=== PATIENT | male | born 1995 | race Caucasian/White ===

== ENCOUNTER → 2024-08-17 | Outpatient (CLI) | payer OTHER, SELFPAY ==
--- NOTE | 2024-08-17 09:34 | MRI_ITS ---
PROCEDURE: LOWER EXT JOINT ONLY (ROUTINE) 08/17/2024 REASON FOR EXAM: MCL SPRAIN TECHNIQUE: MRI of the right knee extremity. T1, T2, PD multiplanar and multisequence images were obtained without IV contrast administration. COMPARISON: COMPARISON : August 06, 2024 x-ray FINDINGS: Bone Marrow: There is bony contusion throughout the medial tibial plateau. Effusion: There is a moderate joint effusion. There is a 1.3 x 0.9 cm Aleman's cyst. Soft Tissues: There is a edema and attenuation throughout the anterior cruciate ligament with lax components, grade 2-3 sprain. The posterior cruciate appears intact. There is a edema, thickening and attenuation throughout the medial collateral ligament without laxity, grade 2 sprain. The lateral collateral ligament complex appears intact. Menisci: The lateral meniscus appears intact. There is a complex tear of the medial meniscus with a bucket-handle component with a fragment interposed in the intercondylar region, with a horizontal component in the posterior horn extending to the tibial surface and to the root. There is a 1.3 x 0.4 cm complex parameniscal cyst at the posterior horn of the medial meniscus. There is mild chondromalacia in the medial patellar facet. Ligaments and Tendons: The distal quadriceps and patellar tendons appear intact. The medial and lateral patellar retinaculum appear intact. MRI/Lower Ext Joint Only (Routine) IMPRESSION: There is bony contusion throughout the medial tibial plateau. There is a moderate joint effusion. There is a 1.3 x 0.9 cm Aleman's cyst. There is a edema and attenuation throughout the anterior cruciate ligament with lax components, grade 2-3 sprain. There is a edema, thickening and attenuation throughout the medial collateral l igament without laxity, grade 2 sprain. There is a complex tear of the medial meniscus with a bucket-handle component w ith a fragment interposed in the intercondylar region, with a horizontal component in the posterior horn extending to the tibi al surface and to the root. There is a 1.3 x 0.4 cm complex parameniscal cyst at the posterior horn of the medial meniscus. There is mild chondromalacia in the medial patellar facet. Reading Location: [facility]
== END | disposition home or self-care (01) ==
LOC: OPMRI 09:22
PROVIDERS: PCP Family Medicine; Referring Provider Physician Assistant Surgical; Visit Provider Physician Assistant Surgical
DX: S83.411A Sprain of medial collateral ligament of right knee, initial encounter (principal); X58.XXXA Exposure to other specified factors, initial encounter
CPT/HCPCS: 73721

== ENCOUNTER 2024-09-16 10:09 | Day surgery (SDC) | payer OTHER, SELFPAY ==
[2024-09-16] VITALS (13 sets, daily range): BP systolic 116–142; BP diastolic 58–73; PULSE 57–67; RESP 14–20; TEMP 36.2–36.4; O2SAT 94–99; BMI 33.8
[2024-09-16] MEDS: Lactated Ringers 1,000 ML 15 ML IV (11:06)
--- NOTE | 2024-09-16 11:53 | PCM.PRE.AN2 ---
ASA Classification* ASA Classification ASA Classification: 1 Assessment & Plan Anesthesia* Anesthesia Assessment Anesthesia Assessment: Discussed sedation and/or anesthesia options, risks, benefits, and alternatives with patient/parents/legal guardian/POA. Questions invited. The patient/parents/legal guardian/POA seems to understand and agrees to proceed with anesthesia plan. Reviewed the physical assessment, medical history, allergy history and patient home medications list prior to surgery/procedure/anesthetic and documented any changes. Performed airway and anesthesia risk assessments. Anesthesia Type Anesthesia Type: General and Block (Patient is consented for adductor canal block.) History Source History Obtained from:: Patient and Chart Anesthesia Focused Assessment* Temperature: 97.5 F Pulse Rate: 67 Blood Pressure: 136/70 Respiratory Rate: 20 Pulse Ox: 99 Oxygen Delivery Method: Room Air Airway Assessment Mouth opens: >3 cm Mallampati Score: II Teeth Condition: Missing (Patient has 1 missing left upper molar. 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 When Was Last Pacemaker Check QUESTION #4 FULL TEXT: You/Your Family Experience fever (hyperthermia) with Anesthesia Last Oral Intake Last Oral intake: Last Oral Intake NPO since 21:00 09/16/24 10:55 Meds taken in AM with sips of water? Meds patient instructed to take am of surgery PONV PONV - land degradation analyst: PONV - land degradation analyst Female No 09/03/24 15:31 HX of Motion Sickness No 09/03/24 15:31 HX of N/V After Surgery No 09/03/24 15:31 Non-Smoker Yes 09/03/24 15:31 Duration of Surgery greater Yes 09/03/24 15:31 than 60 minutes Number of Risk Factors 2 09/03/24 15:31 PONV Score Moderate Risk 09/03/24 15:31 Height & Weight Height & Weight: Anesthesia: Height & Weight Height 6 ft 2 in 09/16/24 10:55 Weight: 119.5 kg 09/16/24 10:55 Body Mass Index (BMI) 33.8 09/16/24 10:55 Respiratory Assessment Respiratory Assessment - land degradation analyst: Respiratory Tract Infection Hx - land degradation analyst Hx Respiratory Tract Infection No 09/03/24 15:31 STOP Sleep Apnea STOP Sleep Apnea - land degradation analyst: STOP Sleep Apnea - land degradation analyst Hx Hypertension No 09/03/24 15:31 Hx Sleep Apnea No 09/03/24 15:31 CPAP BIPAP Do you snore loudly (louder No 09/03/24 15:31 than talking or can be heard Do you often feel tired/ No 09/03/24 15:31 fatigued/ sleepy during daytime? Has anyone observed you stop No 09/03/24 15:31 breathing during sleep? STOP Results Negative 09/03/24 15:31 QUESTION #5 FULL TEXT : Do you snore loudly (louder than talking or can be heard through closed doors)? 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 Specify any problems Hx of Preganancy in last 3 N/A 09/03/24 15:31 Months Nurse Filling Out Transfusion NBUCHER 09/03/24 15:31 & Questions: Date: 09/03/24 09/03/24 15:31 Time: 15:32 09/03/24 15:31 Patient unable to answer at this time (ie. confused, unrespo /Reproduction History /Reproductive History - land degradation analyst: /Reproductive Hx- land degradation analyst Hx Now No 09/03/24 15:31 Gestational Age (in weeks): EDC: Hx Hx Para Hx Section SAB No 09/03/24 15:31 Active Medications Active Medications: Current Medications Generic Name Dose Route Start Last Admin Trade Name Freq PRN Reason Stop Dose Admin Cefazolin Sodium 3 gm/ Sodium 115 mls @ 150 mls/hr 09/16/24 11:40 Chloride IV 09/16/24 12:25 INTRAOP ONE Lactated Ringer's 1,000 mls @ 15 mls/hr 09/16/24 10:45 09/16/24 11:06 IV 15 mls/hr .Q48H FLACO Administration PFSH Medical History Heartburn Gastric reflux Non-smoker Contusion of bone Synovial cyst of popliteal space [Aleman], right knee Sprain of anterior cruciate ligament of right knee Tear of medial meniscus of right knee Home Medications ?Medication ?Instructions ?Recorded ?Last Taken ?Type NK 08/06/24 Unknown History Allergy/AdvReac Type Severity Reaction Status Date / Time No Known Allergies Allergy Verified 09/16/24 10:55 Surgical History History of myringotomy History of thoracentesis Social History Smoking Status: Never smoker Smokeless tobacco user: chewing tobacco alcohol intake: never Review of Systems (Anesthesia) ROS Narrative System reviewed and no additional complaints, except as documented.
--- NOTE | 2024-09-16 12:25 | PCM.HP.STD ---
HPI - General HPI Narrative NANETTE BUSH, is a 29 M who presents for right knee arthroscopy, medial meniscus repair [possible partial medial meniscectomy]. No changes to history and physical exam. Right knee marked. Risks alternatives benefits discussed as well as postoperative instructions and narcotic counseling. The patient understands wished to proceed plan for preoperative block they understood no further questions or concerns. MR#: [id number] Acct: [id number] Name: NANETTE BUSH Rep #: [id number] : 1995 Provider: Dr. Gurpreet Seaman MD Age/Sex: 29/M Location: [facility] [place] Status: Signed Intake Vital Signs 08/14/2507:00 09/01/2507:16 09/03/2507:02 Height 6 ft 2 in 6 ft 2 in 6 ft 2 in Weight: 272 lb BMI 34.9 BP 118/80 Blood Pressure Location Rt brachial Position Sitting Respiration 16 Pulse 63 Pulse Source Monitor Temp 98.5 F Temp Source Temporal Pulse Oximetry (%) 98 Oxygen Delivery Method room air Intake Visit Reasons: RIGHT KNEE Chief Complaint: BWC Right Knee F/U / Eddie Buckner Accompanied by: Self Is patient in pain?: Yes (intermittent) Allergies No Known Allergies Allergy (Verified 09/02/24 08:02) Medications ?Medication ?Instructions ?Recorded ?Confirmed ?Type NK 08/06/24 09/02/24 History PFSH Medical History Contusion of bone Synovial cyst of popliteal space [Aleman], right knee Sprain of anterior cruciate ligament of right knee Tear of medial meniscus of right knee Social History Smoking Status: Never smoker Smokeless tobacco user: chewing tobacco alcohol intake: never HPI RIGHT KNEE Details: This documentation accurately reflects the service provided and the decisions made by me, Dr. Gurpreet Seaman MD 09/02/24 [id number]. Part of today?s visit was documented by [ ], acting as scribe. NANETTE BUSH is a 29 year old M here today for R knee injury, wcb claim. 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 On the date of the injury he was getting twisting pivoting on the knee there is a pop and immediate pain in the medial aspect of the knee. He is continue to experience medial sided knee pain and mechanical symptoms with no giving way the locking in the knee and catching and intermittent sharp pains along the medial joint line. He has been working full-time with no restrictions so far. No past history of injury to the right knee but on the left side he did have an MCL tear in the past. per urgent care 29 M who presents to the office today for complaint of right knee pain. Patient states he was working yesterday on a part kneeling on his right knee and when he went to get up he felt a pop in the right knee. Patient states that since then he has had pain to the inside of the right knee area. He denies any previous injuries to same. No numbness, tingling or loss of range of motion. No other associated symptoms or alleviating/aggravating factors. Supplemental Info [facility] Imaging Services [address] [place], [place] [id number] Knee 3 Views MR#: [id number] Acct: [id number] Name: NANETTE BUSH Rep #: [id number] : 1995 M 29 From: Brayden Galindo MD PCP: Dr. Alok Andino MD Status: DEP AMB Study: Knee 3 Views Date of Exam: 08/06/24 Exam# [id number] Ordering Dr: Malachi Petersen PROCEDURE: KNEE 3 VIEWS 08/06/2024 REASON FOR EXAM: KNEE INJURY TECHNIQUE: 3 view(s) of the right knee COMPARISON: None. RAD/Knee 3 Views IMPRESSION: No significant right knee joint effusion is seen. No significant arthritic process or joint narrowing is noted. Satisfactory osseous alignment is noted. No fracture site is seen. If clinical concern persists, short-term follow-up imaging may be obtained to rule out a currently occult fracture. Reading Location: [address] Imaging Services [address] [place], [place] [id number] Lower Ext Joint Only (Routine) MR#: [id number] Acct: [id number] Name: NANETTE BUSH Rep #: [id number] : 1995 M 29 From: Abdirahman Jain MD PCP: Dr. Alok Andino MD Status: REG CLI Study: Lower Ext Joint Only (Routine) Date of Exam: 08/17/24 Exam# [id number] Ordering Dr: Malachi Petersen PROCEDURE: LOWER EXT JOINT ONLY (ROUTINE) 08/17/2024 REASON FOR EXAM: MCL SPRAIN TECHNIQUE: MRI of the right knee extremity. T1, T2, PD multiplanar and multisequence images were obtained without IV contrast administration. COMPARISON: COMPARISON : August 06, 2024 x-ray FINDINGS: Bone Marrow: There is bony contusion throughout the medial tibial plateau. Effusion: There is a moderate joint effusion. There is a 1.3 x 0.9 cm Aleman's cyst. Soft Tissues: There is a edema and attenuation throughout the anterior cruciate ligament with lax components, grade 2-3 sprain. The posterior cruciate appears intact. There is a edema, thickening and attenuation throughout the medial collateral ligament without laxity, grade 2 sprain. The lateral collateral ligament complex appears intact. Menisci: The lateral meniscus appears intact. There is a complex tear of the medial meniscus with a bucket-handle component with a fragment interposed in the intercondylar region, with a horizontal component in the posterior horn extending to the tibial surface and to the root. There is a 1.3 x 0.4 cm complex parameniscal cyst at the posterior horn of the medial meniscus. There is mild chondromalacia in the medial patellar facet. Ligaments and Tendons: The distal quadriceps and patellar tendons appear intact. The medial and lateral patellar retinaculum appear intact. MRI/Lower Ext Joint Only (Routine) IMPRESSION: There is bony contusion throughout the medial tibial plateau. There is a moderate joint effusion. There is a 1.3 x 0.9 cm Aleman's cyst. There is a edema and attenuation throughout the anterior cruciate ligament with lax components, grade 2-3 sprain. There is a edema, thickening and attenuation throughout the medial collateral ligament without laxity, grade 2 sprain. There is a complex tear of the medial meniscus with a bucket-handle component with a fragment interposed in the intercondylar region, with a horizontal component in the posterior horn extending to the tibial surface and to the root. There is a 1.3 x 0.4 cm complex parameniscal cyst at the posterior horn of the medial meniscus. There is mild chondromalacia in the medial patellar facet. Reading [facility] I independently reviewed the imaging. Concur with radiologist report. 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 The meniscus tear is likely acute from this kneeling injury. May have left alone that would likely contribute to further degeneration problems damage of the cartilage and further tearing of the meniscus. I suggest surgery in the form of right knee arthroscopy, medial meniscus repair [possible partial medial meniscectomy]. Patient understands wished to go ahead with surgery. He does use chewing tobacco that can increase the risks of surgery. Otherwise he is healthy individual. He understands we will submit the approval and in the meantime [employer] 14 for no pivoting twisting and mostly sedentary activities only for now. I did let her know that we will try to get this done as soon as possible as he does have a bucket-handle tear in the longer he uses as needed worse the potential damage could be to the meniscus. Pros and cons risks and benefits were discussed with the patient including but not limited to infection, pain, stiffness, bleeding, damage to surrounding structures, neurovascular injury, recurrence or retear, failure or wear of hardware or fixation, instability, fracture, deep vein thrombosis and pulmonary embolism, anesthetic risks, , patient dissatisfaction, need for further surgery and other risks. Patient understood and wished to proceed with surgery, and signed the informed consent documentation. (2) Tear of medial meniscus of right knee: Status: Acute (3) Sprain of anterior cruciate ligament of right knee: Status: Acute (4) Synovial cyst of popliteal space [Aleman], right knee: Status: Acute (5) Contusion of bone: Status: Acute Ortho Exam General General: Yes no acute distress Neurologic: Yes alert and Yes oriented x3 Psychologic: Yes reasonable and appropriate Right Knee Skin/Wound: Yes CDI, No erythema, No ecchymosis and Yes swelling Knee ROM: Yes ROM-Flexion 0-140 Examination: Yes Med jt line tenderness, No Lat jt line tenderness, No TTP inf pole patella, No Crepitus, No Pain with flexion, Yes Lauren's Test, No TTP Patellar tendon, No TTP Tibial tubercle, No TTP Pes Anserine and No Illiotibial band tenderness Quad Atrophy: No Stability: NML: Anterior Drawer, NML: Sheila, NML: Posterior Drawer, NML: Valgus 0, NML: Valgus 30, NML: Varus 0 and NML: Varus 30 Patella Translation: 2 Apprehension with Lateral Translation: No Patellar Tilt Normal: Yes Patella Grind: No KNEE: NVI, normal gait, normal alignment, trace effusion, full ROM. Left Knee Patella Translation: 2 PFSH Medical History Heartburn Gastric reflux Non-smoker Contusion of bone Synovial cyst of popliteal space [Aleman], right knee Sprain of anterior cruciate ligament of right knee Tear of medial meniscus of right knee Home Medications ?Medication ?Instructions ?Recorded ?Last Taken ?Type NK 08/06/24 Unknown History Allergy/AdvReac Type Severity Reaction Status Date / Time No Known Allergies Allergy Verified 09/16/24 10:55 Surgical History History of myringotomy History of thoracentesis Social History Smoking Status: Never smoker Smokeless tobacco user: chewing tobacco alcohol intake: never Vital Signs Vital Signs Vital Signs: 09/16/24 10:55 09/16/24 10:55 09/16/24 12:00 Temperature 97.5 F L 97.5 F L Temperature Source Temporal Pulse Rate 67 67 Respiratory Rate 20 H 20 H Respiratory Pattern Normal Blood Pressure 136/70 H 136/70 H Blood Pressure Mean 92 Blood Pressure Source Monitor Blood Pressure Position Semi-Fowlers Blood Pressure Location Left Arm Pulse Ox 99 99 Oxygen Delivery Method Room Air Room Air Weight Weight: 263 lb 7.238 oz Body Mass Index (BMI) 33.8
[2024-09-16] MEDS: Cefazolin 3 GM in 0.9% Normal Saline (100mL Bag) 100 ML IV (12:39)
[2024-09-16] MEDS: Epinephrine (1 mg/ml) 1 MG/ML VIAL (13:20)
--- NOTE | 2024-09-16 13:32 | PCM.OPRPT ---
Problems Associated Problem List Diagnoses (1) Tear of medial meniscus of right knee: (2) Sprain of anterior cruciate ligament of right knee: (3) MCL sprain of right knee: Procedures Musculoskeletal [id number]-29xxx: Other Procedure See Report Operative Report (Standard) Operative Information Date of Procedure: 09/16/24 Pre-Operative Diagnosis: Right knee medial meniscus tear, ACL and MCL sprain Post-Operative Diagnosis: same Surgery/Procedure Performed: Right knee arthroscopy, medial meniscus repair and small partial meniscectomy, marrow stimulation sequins stringer: Yes Guideman: alyssa Tasks completed by certified surgical first assistant: Retracting Additional blacksmith assistant?: No Type of Anesthesia: Block,Regional and General RN Documented Start/Stop Times: Operation Date: 09/16/24 11:40 Case Time Into Pre-Op 09/16/24 10:37 Anesthesia Start 09/16/24 12:39 Into Room 09/16/24 12:39 Procedure Start 09/16/24 13:03 Procedure End 09/16/24 13:29 Procedure Start Time: 13:03 Procedure Stop Time: 13:29 Select all DRAINS/GRAFTS/IMPLANTS that apply: Implanted device Implanted device details: arthrex fiberstitch meniscus repair device x4 Estimated Blood Loss: 10 Specimen collected: No Description of surgery: Patient brought to the operating room theater. Placed supine on the table. 3 g of IV Ancef administered prior to this procedure. General anesthesia induced. SCD on the nonoperative leg. All bony prominences padded. Right lower extremity tourniquet applied to the right thigh appropriately padded. Stress positioner to the patient's right side. Lower extremity prepped and draped in the usual sterile fashion with chlorhexidine-based prep solution allowing over 3 minutes drying time prior to draping. Began by elevating the limb inflating the tourniquet to 250 mmHg. Use standard anterolateral and anteromedial arthroscopy portals as well as an accessory anteromedial portal. Began by doing a full diagnostic arthroscopy. Cartilage in all 3 compartments was normal. Lateral meniscus was normal stable and solid to probing. Remove the ligamentum mucosum. ACL was stable to probing as well as the PCL. Medial lateral gutters entered no loose bodies. I identified the medial sided tear near the posterior horn. I used piecrust technique at the proximal MCL using a spinal needle to trephinate the MCL and open up the medial compartment. I used a rasp at the tear. There is a horizontal tear. There is also 2 flaps at the anterior and posterior aspect of the tear that had to be removed trim down and shaved using a debriding instrument to stable and solid margins. The posterior root was intact. There is also a small ramp tear as well that identified. I used the rasp at the wrapper tear as well as between the 2 layers. I also used a Arthrex power pick at the notch for bony marrow stimulation. I used all inside technique Arthrex 1.5 fiber stitch meniscus repair devices. I used 4 vertical mattress sutures to compress the tear and hold this into place. I placed 1 at the ramp tear region to secure the meniscus to the capsule as well as 3 at the horizontal oriented tear at the posterior horn. Tear measured approximately 2 cm from anterior to posterior. This was stable and solid after repair and pictures saved and printed. Case terminated arthroscope withdrawn. Tourniquet let down hemostasis achieved wounds cleaned with wet dry dressing portal sites closed with 3-0 Monocryl suture. This was followed by cleansing with wet dry dressing and then Steri-Strips Adaptic 4 x 4 gauze ABD dressing Claudy wrap and a hinged knee brace locked in full extension. Patient woken up from the general anesthetic transferred off the operating room table taken to postanesthetic care unit in stable condition. All sponge needle instrument counts were correct no complications plan for the patient pressure weightbearing full extension with crutches with a hinged knee brace and then start physical therapy for passive range of motion 0 to 90 degrees. Patient to follow-up in clinic within 2 days to 2 weeks time. CPT 37328, 53259 Surgical Findings: as above Complications Complications: No Admit VTE Documentation VTE Present on Admission: No VTE Mechan Device Prophylaxis: SCD's VTE Pharm Prophylaxis ordered?: No Reason prophylaxis not ordered: Treatment Not Indicated
--- NOTE | 2024-09-16 13:39 | DCINST_ITS ---
Discharge Instructions Diet Discharge Diet: No restrictions Activity Discharge Activity: Return to Normal Activity and Use Crutches Weight Bearing Status: Weight bearing as tolerated Lifting Restrictions: WBAT in full extension with brace locked straight Keep extremity elevated above heart level: Operative Extremity Dressing / Incision Call your doctor if your incision/area has: Continuous Slow Oozing, Sudden Increased Bleeding, Increased Pain/ Swelling, Increased Redness, Foul Smelling Discharge and Swelling at the incision site Call your doctor if you observe: Fever of 101 or Higher, Coldness, Increased Pain and Numbness or Tingling Remove Dressing in: leave in place till F/U Cleanse incision/area with: Do not get Incision Wet Follow Up Care Please Follow Up With: Gurpreet Seaman MD When: 2 days Test Results: Test results from this visit will be discussed in further detail at your follow- up appointment, if applicable. Discharge Plan Admission Attending Provider: Gurpreet Seaman Primary Care Provider: Care Physician,No Primary Instructions Patient Instructions: After Knee Arthroscopy Print Language: Armenian Discharge Orders/Prescriptions Prescriptions: New oxycodone-acetaminophen [Percocet] 5-325 mg tablet 1 tab PO Q4H MDD 6 PRN (Reason: pain) 4 Days Qty: 20 0RF Referrals / Follow Up: Gurpreet Seaman MD [Med Staff - Active Staff] - Care Physician,No Primary [Primary Care Provider] - Disposition Disposition (needs filled in before D/C Order can be placed): Home, Self Care
--- NOTE | 2024-09-16 13:54 | PCM.POST.ANE ---
Anesthesia: Postop Eval I Current Vital Signs Temperature: 97.2 F Pulse Rate: 59 Blood Pressure: 141/73 Respiratory Rate: 16 Pulse Ox: 94 Assessment Airway patent: Yes Spontaneous unlabored respirations: Yes nausea: No Vomiting: No Anesthesia Complication: No Fluid Hydration Crystalloid volume administer (ml): 900 Total IV fluid infused: 900 Progress Note Anesthesia document: Postop Eval 1 completed: Yes
--- NOTE | 2024-09-16 16:34 | POSTOPAN2_ITS ---
Anesthesia Postop Eval I Sum Postop Eval Completion status Anesthesia document: Postop Eval 1 completed: Yes Anesthesia Postop Eval I Summary Anesthesia Postop Eval I Summary: Anesthesia Postop Eval I: Assessment Summary Airway patent Yes 09/16/24 13:54 [email or web address] Spontaneous unlabored Yes 09/16/24 13:54 [email or web address] respirations Mental status nausea No 09/16/24 13:54 [email or web address] Vomiting No 09/16/24 13:54 [email or web address] Anesthesia Postop Eval I: Fluid Summary Crystalloid volume administer 900 09/16/24 13:54 [email or web address] (ml) Colloids volume administered ( ml) Blood Product volume administered (ml) Total IV fluid infused 900 09/16/24 13:54 [email or web address] Anesthesia Postop Eval I: Summary Notes Anesthesia Complication No 09/16/24 13:54 [email or web address] Anesthesia Complication Comment: Post-operative progress note Anesthesia: Postop Eval II Evaluation Mental status: Awake Pain Level: 3 nausea: No Vomiting: No
--- NOTE | 2024-09-16 16:34 | PCM.POSTANE2 ---
Anesthesia Postop Eval I Sum Postop Eval Completion status Anesthesia document: Postop Eval 1 completed: Yes Anesthesia Postop Eval I Summary Anesthesia Postop Eval I Summary: Anesthesia Postop Eval I: Assessment Summary Airway patent Yes 09/16/24 13:54 COOLER [email or web address] Spontaneous unlabored Yes 09/16/24 13:54 COOLER [email or web address] respirations Mental status nausea No 09/16/24 13:54 COOLER [email or web address] Vomiting No 09/16/24 13:54 COOLER [email or web address] Anesthesia Postop Eval I: Fluid Summary Crystalloid volume administer 900 09/16/24 13:54 COOLER [email or web address] (ml) Colloids volume administered ( ml) Blood Product volume administered (ml) Total IV fluid infused 900 09/16/24 13:54 COOLER [email or web address] Anesthesia Postop Eval I: Summary Notes Anesthesia Complication No 09/16/24 13:54 COOLER [email or web address] Anesthesia Complication Comment: Post-operative progress note Anesthesia: Postop Eval II Evaluation Mental status: Awake Pain Level: 3 nausea: No Vomiting: No
== END 2024-09-16 16:22 | disposition home or self-care (01) ==
LOC: SDC 10:12 → AC 10:13
PROVIDERS: Referring Provider Orthopaedic Surgery Sports Medicine; Visit Provider Orthopaedic Surgery Sports Medicine
PROC: (CPT 29870; principal; 2024-09-16 11:20)
DX: S83.231A Complex tear of medial meniscus, current injury, right knee, initial encounter (principal); S83.411A Sprain of medial collateral ligament of right knee, initial encounter; S83.511A Sprain of anterior cruciate ligament of right knee, initial encounter; M71.21 Synovial cyst of popliteal space [Baker], right knee; X50.1XXA Overexertion from prolonged static or awkward postures, initial encounter; Y92.89 Other specified places as the place of occurrence of the external cause; Y99.0 Civilian activity done for income or pay; K21.9 Gastro-esophageal reflux disease without esophagitis; F17.220 Nicotine dependence, chewing tobacco, uncomplicated
CPT/HCPCS: 29882; 64447; 01400; J2405

== ENCOUNTER 2024-12-23 08:30 | Outpatient (RCR) | payer OTHER, SELFPAY ==
--- NOTE | 2024-10-09 11:40 | HP.PTEVAL ---
Patient's Visit Information Visit Information Visit Information: NANETTE BUSH is a 29 year old M referred to Physical Therapy by Dr. Gurpreet Seaman MD with a diagnosis of Other tear of medial meniscus, current injury, right knee, sprain MCL. Date of Evaluation: 10/09/24 Physical Therapist: Jaime Bond, PT, Cert MDT, OCS Visit Plan Frequency: 2-3x /Week Duration: 6 Weeks Plan: *Right knee arthroscopy, medial meniscus repair and small partial meniscectomy, marrow stimulation September 16* Patient WBAT RLE with knee brace locked in extension with crutches ,okay to remove for mat exercises ROM knee flexion 0-90 degrees until sees MD 10/27 See Guidelines for advance meniscus repair PT INTERVTIONS MAT EX'S FOR ROM 4WAY SLR ,VASO FOR EDEMA ,PROGRESS TO STRENGTHENING EX'S QUADS/HAMS/HIP OPEN/CLOSED CHAIN PER GUIDELINES ,FUNCTIONAL STRENGTHENING ,GAIT TRAINING AND PROPRIOCEPTION Subjective Subjective: This 29 y/o male present to physical therapy with s/p right knee arthroscopy, medial meniscus repair and small partial meniscectomy, marrow stimulation September [address] Seaman at [facility] .Patient was d/c DOS with brace locked in extension with crutches with TTWB RLE. Patient seen 10/01 recommended PT and progress with WB. and RTD . Patient injury knee at work kneeling and turning right knee and felt a pop on 08/05/24 . Immediate pain then went to Now x-rays . Then had MRI complex tear of the medial meniscus with a bucket-handle component with a fragment interposed in the intercondylar region, with a horizontal component in the posterior horn extending to the tibial surface and to the root.There is a 1.3 x 0.4 cm complex parameniscal cyst at the posterior horn of the medial meniscus ,ACL grade -2-3.Seen Dr Seaman . No pain . Edema in knee. Denies paresthesia/tingling. Patient has stairs at home doing fine. Patient girlfriend does ADL.s . Sleeps with brace. Stopped pain medication .Patient condition affects QOL/function and ADLS. RTD and walking. SOCIAL: single VOCATION: [employer] Objective Objective: POSTURE: mild forward posture GAIT: Ambulates with crutches with WBAT RLE with crutches PATELLA JOINT LINE: 48.8 CM SUPRAPATELLAR 6 ABOVE: 56 .4 CM NEURO: denies paresthesia/tingling , SKIN : incision well approximate AROM: 0-90 degrees MMT: ( peak force) 0 ,ankle 5/5 Quad set: good contraction SLR: able to perform Balance/Special Test Scores Lower Extremity Functional Score: 24 Goals Goal 1:: Patient to be I with HEP for for meniscus repair Goal Time Frame: 8-12 Weeks Goal 2:: Patient to normalize gait Goal Time Frame: 8-12 Weeks Goal 3:: Patient to improve AROM supine knee flexion 0-130 degrees to improve stairs. Goal Time Frame: 8-12 Weeks Goal 4:: Patient to improve peak force quads/hams/hip by 20-25# to improve function and RTW. Goal Time Frame: 8-12 Weeks Goal 5:: Patient to improve LFES score by 5 -10 to improve function and QOL Goal Time Frame: 8-12 Weeks Rehabilitation Potential Physical Therapy Diagnosis: This patient Right knee arthroscopy, medial meniscus repair and small partial meniscectomy, marrow stimulation September 16 with decrease ROM ,strength ,impairs gait and return to work thus benefit from skilled PT Rehabilitation Potential: Good Anticipated Interventions Patient/Client Instruction: Educate patient on: Condition and Plan of Care For the Purpose of:: To decrease pain, To increase ROM, To improve muscle performance and motor function, To improve ability to perform ADL's, To increase tolerance to activity/condition/position, To improve ability of physical actions for home/community/work/leisure, To improve gait and locomotor functions, To improve health of tissue, To decrease soft tissue restriction, To increase flexibility/ROM, To improve endurance and To improve balance Therapeutic Exercise to Include: Strength training, Endurance training, Balance training, Gait and locomotor training, Passive ROM and Active ROM Comment: SEE GUIDELINES FOR MENISCUS REPAIR PRGRESSION For the Purpose of:: To decrease pain, To increase ROM, To improve muscle performance and motor function, To improve ability to perform ADL's, To increase tolerance to activity/condition/position, To improve ability of physical actions for home/community/work/leisure, To improve health of tissue, To decrease soft tissue restriction, To increase flexibility/ROM, To improve balance and To improve tolerance to ADL's TENS: Yes IF ES: Yes Cryotherapy (ice pack, ice massage): Yes Vasopneumatic device: Yes For the Purpose of:: To decrease pain, To improve nutrient delivery to tissue, To increase oxygenation perfusion, To improve health of tissue, To decrease soft tissue restriction and To increase flexibility/ROM Text: Thank you for the opportunity to evaluate your patient. For Medicare and Medicare HMO plans, please review the plan of care and approve it. It will need to be FAXED BACK to us at [phone] for Medicare purposes. For Medicare only, by signing this I certify the plan of care. Please let me know if there are questions or concerns regarding this plan of care. Physician Signature: Date:
== END 2024-12-23 19:00 | disposition home or self-care (01) ==
LOC: PT 08:30
PROVIDERS: Referring Provider Orthopaedic Surgery Sports Medicine; Visit Provider Orthopaedic Surgery Sports Medicine
DX: S83.241D Other tear of medial meniscus, current injury, right knee, subsequent encounter (principal)
CPT/HCPCS: 97110; 97162; 97530